=== PATIENT | male | born 1965 | race Caucasian/White ===

== ENCOUNTER 2020-03-24 05:37 | Outpatient (RCR) | payer BC ==
[~2020-03-24] VITALS: Ht 182 cm; Wt 86.3 kg
[2020-03-24] MEDS ORDERED: MULT-1136 PO (11:29)
== END 2020-06-22 | disposition home or self-care (01) ==
LOC: PREOP 05:37
PROVIDERS: ATTEND Internal Medicine
DX: Z01.818 Encounter for other preprocedural examination (principal)

== ENCOUNTER 2020-03-31 07:15 | Day surgery (SDC) | payer BC ==
--- NOTE | 2020-03-19 07:33 | HISTORY AND PHYSICAL ---
DATE OF SERVICE: COLONOSCOPY HISTORY AND PHYSICAL HISTORY OF PRESENT ILLNESS: The patient is a 54-year-old white male seen in the office on the for followup of blood pressure elevation. He reports he has had difficulty hearing with his right ear with a plugged sensation for the past several months. He had tried ozfr-imu-xoywtwu earwax removal with no improvement. He notes some intermittent tightness in the left side of his neck and odd sensation, difficult to describe that lasts for several minutes and then abates. It is not associated with swallowing and he denies dysphagia. He had not previously undergone a screening colonoscopy and I set him up for screening colonoscopy in October; however, due to COVID-19 concerns, he postponed the procedure. He reports that he is ready to proceed. He has noted no bright red blood per rectum or melena. There is a medical history of colon polyps in his father, possibly in his mother, but he is not aware of any family history for colon cancer. PAST SURGICAL HISTORY: He underwent left inguinal hernia repair in 2011. Reports no other surgeries. SOCIAL HISTORY: He has a history of social alcohol intake. No past smoking history. 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 PHYSICAL EXAMINATION: GENERAL: Reveals a white male, appeared to be in no acute distress. VITAL SIGNS: Weight 196.6 pounds. Initial blood pressure 158/90 at the end of the interview 140/88. HEENT: Unremarkable, except for right-sided cerumen impaction. A small amount of wax was noted on the left side; ultimately after cerumen removal, ear canals and TMs were normal. CHEST: Clear to auscultation. CARDIOVASCULAR: Revealed a regular rate and rhythm without murmur, S3 or S4. ABDOMEN: Soft, supple without mass, organomegaly or tenderness. EXTREMITIES: Reveal no cyanosis, clubbing or edema. NECK: Revealed no JVD, adenopathy or bruits. No thyroid abnormality to palpation was noted either. ASSESSMENT AND PLAN: 1. Cerumen impaction, removed cotton material as well as a wax plug ultimately from the right ear canal. Discussed the importance of using a washcloth only and avoiding Q-tip use in the future. 2. The patient was set up for screening colonoscopy. Prep instructions with the Suprep kit were given and questions were answered. 3. Blood pressure elevation. Family history for hypertension, discussed after taking history need for salt restriction, portion control and follow up in 4 months. Job ID: [id number] DocumentID: [id number] Dictated Date: 03/17/2020 13:57:16 Coin Machine [employer]ic Date: 03/17/2020 14:07:48 Dictated By: NADEEM CASTANEDA MD
[~2020-03-31] VITALS: Ht 182 cm; Wt 86.3 kg
[2020-03-31] VITALS (9 sets, daily range): BP systolic 132–166; BP diastolic 75–98
[~2020-03-31 07:15] MED LIST: D5 LR IV SOLUTION 1,000 ML IV ONE; MULT-1136 PO
[2020-03-31] MEDS ORDERED: D5 LR IV SOLUTION 1,000 ML IV STA (07:24)
[2020-03-31] MEDS ORDERED: fentaNYL INJECTION 100 MCG/2 ML AMP IVP ONE (07:30)
[2020-03-31] MEDS ORDERED: LIDOCAINE JELLY 2% 6 ML SYRINGE MM PRN (07:30)
[2020-03-31] MEDS ORDERED: MIDAZOLAM 5 MG/5 ML (VERSED) VIAL ONE (07:43)
[2020-03-31] MEDS ORDERED: LIDOCAINE JELLY 2% 6 ML SYRINGE ONE (07:43)
[2020-03-31] MEDS ORDERED: fentaNYL INJECTION 100 MCG/2 ML AMP ONE (07:44)
[2020-03-31] MEDS: MIDAZOLAM 5 MG/5 ML (VERSED) VIAL IV PRN ×2 (07:58→08:01)
[2020-03-31] MEDS ORDERED: MIDAZOLAM 2 MG/2 ML (VERSED) VIAL ONE (08:00)
--- OUTSIDE RECORDS SUMMARY | 2020-03-31 08:13 | XMS REPORT | Continuity of Care Document ---
Author Organization Unknown Address Unknown Phone Unavailable Allergies Active Description Code Type Severity Reaction Onset Reported/Identified Relationship to Patient Clinical Status Yes No Known Drug Allergies [id number] Drug Allergy Unknown N/A 03/24/2020 Medications There is no data. Problems Date Dx Coded Attending Type Code Diagnosis Diagnosed By 01/26/2012 Ot 550.10 UNI LAT ING HERNIA W OBST 08/01/2014 Ot 550.90 08/01/2014 Ot V72.63 08/01/2014 Ot V72.81 08/01/2014 Ot V74.8 08/02/2014 Ot 550.90 08/02/2014 Ot V72.63 08/02/2014 Ot V72.81 08/02/2014 Ot V74.8 03/15/2017 Ot 550.90 UNI LAT INGUINAL HERNIA 03/15/2017 Ot V72.63 PRE -PROCEDURAL LABORATORY EXAMINATION 03/15/2017 Ot V72.81 [id number] CARDIOVASCULAR 03/15/2017 Ot V74.8 SCRE EN-BACTERIAL DIS NEC Procedures There is no data. Results There is no data. Encounters ACCT No. Visit Date/Time Discharge Status Pt. Type Provider Facility Loc./Unit Complaint [id number] 03/24/2020 05:37:00 020 23:59:59 CLS Outpatient NADEEM CASTANEDA MD [facility] PREOP SCREENING [id number] 03/31/2020 07:30:00 P EN Preadmit NADEEM CASTANEDA MD [facility] ENDO SCREENING [id number] 01/26/2012 06:11:00 Document Registration [id number] 01/20/2012 09:52:00 Document Registration
--- NOTE | 2020-03-31 08:22 | Pre-Op Note & Conscious Sedat ---
Pre-Operative Progress Note H&P Reviewed The H&P was reviewed, patient examined and no changes noted. Date H&P Reviewed: Mar 31, 2020 Time H&P Reviewed: 07:30 Conscious Sedation Pre-Proced ASA Score 1 For ASA 3 and 4: Consider anesthesia and medical clearance. Also, for patients with a history of failed moderate sedation consider anesthesia. Airway Lungs Heart ASA score ASA 1: a normal healthy patient ASA 2: a patient with a mild systemic disease (mid diabetes, controlled hypertension, obesity ASA 3: a patient with a severe systemic disease that limits activity (angina, COPD, prior Myocardial infarction) ASA 4: a patient with an incapacitating disease that is a constant threat to life (CHF, renal failure) ASA 5: a moribund patient not expected to survive 24 hrs. (ruptured aneurysm) ASA 6: a declared brain- patient whose organs are being harvested. For emergent operations, add the letter E after the classification Mallampati Classification Grade 1 Sedation Plan Analgesia, Amnesia, Plan communicated to team members, Discussed options with patient/fam, Discussed risks with patient/fam The patient is an appropriate candidate to undergo the planned procedure, sedation, and anesthesia. The patient immediately re-assessed prior to indication. NADEEM CASTANEDA MD Mar 31, 2020 08:22
--- NOTE | 2020-03-31 09:26 | OPERATIVE REPORT ---
DATE OF SERVICE: COLONOSCOPY SUMMARY INDICATION FOR THE PROCEDURE: Screening colonoscopy. DESCRIPTION OF PROCEDURE: The patient was placed in the left lateral decubitus position. Prior to undergoing colonoscopy, digital rectal evaluation was performed. Anal sphincter tone was normal and the perianal reflex was intact. No abnormalities were noted on digital inspection of the prostate, which is normal in size, anodular, nontender. No abnormalities were noted digital inspection of the anal canal or distal rectal vault. The colonoscope was then inserted into the rectum and under direct visualization advanced to the cecum. The cecum was identified by identification is valve, cecal strap and appendiceal orifice. Photographic documentation was obtained. Careful inspection was made as the colonoscope was withdrawn. Quality of prep was good. FINDINGS: There was no evidence for internal or external hemorrhoids and the rectum was unremarkable. Present in the mid sigmoid colon was diminutive hyperplastic appearing 2 to 3 mm polyp, which was photographed and biopsied and ablated with minimal blood loss. No evidence for diverticular disease was noted. The remainder of the sigmoid colon was unremarkable. The descending colon, splenic flexure, transverse colon, hepatic flexure, ascending colon and cecum were unremarkable. ASSESSMENT: One diminutive polyp was removed via hot forceps with hyperplastic features from the mid sigmoid colon. This is an otherwise normal colonoscopy to the cecum. As there is no reported family history for colon cancer, we will advocate consideration for repeat screening colonoscopy in 10 years. Prostate was normal in size and anodular to digital inspection. Job ID: [id number] DocumentID: [id number] Dictated Date: 03/31/2020 08:26:28 Jacker Date: 03/31/2020 09:25:47 Dictated By: NADEEM CASTANEDA MD
== END 2020-03-31 08:55 | disposition home or self-care (01) ==
LOC: ENDO 07:15
PROVIDERS: ATTEND Internal Medicine
DX: Z12.11 Encounter for screening for malignant neoplasm of colon (principal); K63.5 Polyp of colon; Z83.71 Family history of colonic polyps